=== PATIENT | male | born 1950 | race Caucasian/White ===

== ENCOUNTER 2017-11-23 14:02 | Emergency (ER) | payer OTHER ==
[~2017-11-23] VITALS: Ht 172.7 cm; Wt 63.5 kg
[2017-11-23 14:12] VITALS: BP 144/75
[2017-11-23] MEDS ORDERED: HYDROcodone/APAP 5/325 MG 1 TAB TAB PO ONE (14:30)
[2017-11-23 16:35] VITALS: BP 123/74
== END 2017-11-23 16:35 | disposition home or self-care (01) ==
LOC: MED 14:02
DX: M79.671 Pain in right foot (principal); M25.552 Pain in left hip; E11.9 Type 2 diabetes mellitus without complications; I10 Essential (primary) hypertension; Z90.89 Acquired absence of other organs
CPT/HCPCS: 73502; 99284